=== PATIENT | male | born 1975 | race Caucasian/White ===

== ENCOUNTER 2019-03-10 20:45 | Emergency (ER) | payer OTHER ==
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
[2019-03-10 21:08] VITALS: BP 148/97; PULSE 82; TEMP 98.1; BMI 32.8
== END 2019-03-10 21:11 | disposition home or self-care (01) ==
LOC: JER 20:45
DX: R03.0 Elevated blood-pressure reading, without diagnosis of hypertension (principal); Z91.013 Allergy to seafood
CPT/HCPCS: 99281-25

== ENCOUNTER 2020-12-21 04:58 | Emergency (ER) | payer OTHER ==
[2020-12-21] MEDS ORDERED: diazePAM 5 MG TABLET PO ONE (05:23)
[2020-12-21] MEDS ORDERED: LACTATED RINGERS SOLUTION 1000 ML INFUS.BAG IV ONE (05:23)
[2020-12-21] MEDS ORDERED: DEXAMETHASONE SOD PHOSPHATE 10 MG/1 ML VIAL IVPUSH ONE (05:23)
[2020-12-21] MEDS ORDERED: diazePAM 5 MG TABLET ONE (05:27)
[2020-12-21] MEDS ORDERED: DEXAMETHASONE SOD PHOSPHATE 10 MG/1 ML VIAL ONE (05:27)
[2020-12-21] MEDS ORDERED: ACETAMINOPHEN 1000 MG/100 ML VIAL (NON FORMULARY) IVPB ONE (05:28)
[2020-12-21] MEDS ORDERED: LIDOCAINE 5% TOPICAL PATCH TP ONE (05:29)
[2020-12-21 05:30] VITALS: BMI 29.9
[2020-12-21] MEDS ORDERED: ONDANSETRON 4 MG/2 ML VIAL IVPUSH ONE (05:35)
[2020-12-21] MEDS ORDERED: ACETAMINOPHEN INJECTION 100 ML IVPB ONE (05:37)
[2020-12-21] MEDS ORDERED: ONDANSETRON 4 MG/2 ML VIAL ONE (05:37)
[2020-12-21] MEDS ORDERED: LIDOCAINE 5% TOPICAL PATCH ONE (05:37)
[2020-12-21 05:53] LABS: BASO % 1.2 % (0-2.0); EOS % 0.2 % (0-4.5); HEMATOCRIT 45.6 % (35.4-49); HEMOGLOBIN 15.8 GM/dL (11.7-16.9); LYMPH % 14.1 % (8-40); MCH 32.6 pg (25.7-33.7); MCHC 34.7 g/dl (32.0-35.9); MEAN CELL VOLUME 93.9 fl (80-96); MEAN PLT VOLUME 9.1 fl (7.5-11.1); MONO % 5.6 % (3.8-10.2); NEUT % 78.9 % (42.8-82.8); PLATELET COUNT 215 10^3/uL (134-434); RBC 4.86 M/mm3 (4.00-5.60); RDW 13.6 % (11.9-15.9); WHITE BLOOD COUNT 11.4 K/mm3 (4.0-10.0)
[2020-12-21 06:12] LABS: CALCIUM 9.2 mg/dL (8.5-10.1)
[2020-12-21 06:13] LABS: ALBUMIN 4.3 g/dl (3.4-5.0); BLOOD UREA NITROGEN 15.6 mg/dL (7-18)
[2020-12-21 06:16] LABS: CREATININE 1.2 mg/dL (0.55-1.3)
[2020-12-21 06:17] LABS: BILIRUBIN,TOTAL 0.2 mg/dL (0.2-1)
[2020-12-21 06:26] VITALS: BP 130/93; PULSE 70; TEMP 98.3
[2020-12-21 08:08] LABS: PH,URINE 5.5 (5.0-8.0); URINE APPEARANCE CLEAR; URINE BILIRUBIN NEGATIVE (NEGATIVE); URINE COLOR YELLOW; URINE GLUCOSE (UA) NEGATIVE (NEGATIVE); URINE KETONE NEGATIVE (NEGATIVE); URINE LEUK ESTERASE NEGATIVE (NEGATIVE); URINE NITRITE NEGATIVE (NEGATIVE); URINE PROTEIN NEGATIVE (NEGATIVE); URINE UROBILINOGEN 0.2 mg/dL (0.2-1.0)
[2020-12-21 10:23] LABS: EPI CELLS 7 /uL (0-25.1); HYALINE CASTS 8 /uL (0-3.1); URINE BACTERIA 4 /uL (0-1359); URINE RBC 6 /uL (0-23.9); URINE WBC 7 /uL (0-25.8)
[2020-12-21] MEDS ORDERED: LIDOCAINE PATCH REMOVAL MC SCH (22:00)
== END 2020-12-21 09:47 | disposition home or self-care (01) ==
LOC: JER 04:58
PROC: 3E0333Z Introduction of Anti-inflammatory into Peripheral Vein, Percutaneous Approach (ICD-10-PCS; principal; 2020-12-21)
PROC: 3E033GC Introduction of Other Therapeutic Substance into Peripheral Vein, Percutaneous Approach (ICD-10-PCS; 2020-12-21)
PROC: 3E033GC Introduction of Other Therapeutic Substance into Peripheral Vein, Percutaneous Approach (ICD-10-PCS; 2020-12-21)
DX: M54.5 Low back pain (principal)
CPT/HCPCS: 36415; 71275-TC; 72128-TC; 72131-TC; 74174-TC; 80053; 81003; 82550; 82553; 84484; 85025; 93005; 93010; 99285-25; J0131; J1100

== ENCOUNTER 2022-10-04 23:26 | Emergency (ER) | payer OTHER ==
[2022-10-04 23:35] VITALS: BP 143/96; PULSE 81; RESP 20; TEMP 97.6; BMI 29.2
[2022-10-05] MEDS ORDERED: LIDOCAINE 5% TOPICAL PATCH TP ONE (00:27)
[2022-10-05] MEDS ORDERED: ACETAMINOPHEN 500 MG TABLET (FP) PO ONE (00:27)
[2022-10-05] MEDS ORDERED: KETOROLAC TROMETHAMINE 30 MG/1 ML VIAL IM ONE (00:31)
[2022-10-05] MEDS ORDERED: LIDOCAINE 5% TOPICAL PATCH ONE (00:41)
[2022-10-05] MEDS ORDERED: ACETAMINOPHEN 500 MG TABLET (FP) ONE (00:41)
[2022-10-05] MEDS ORDERED: KETOROLAC TROMETHAMINE 30 MG/1 ML VIAL ONE (00:41)
== END 2022-10-05 02:17 | disposition home or self-care (01) ==
LOC: JER 23:26
PROC: 3E0233Z Introduction of Anti-inflammatory into Muscle, Percutaneous Approach (ICD-10-PCS; principal; 2022-10-04)
DX: M54.42 Lumbago with sciatica, left side (principal)
CPT/HCPCS: 99284-25

== ENCOUNTER 2023-10-22 12:25 | Emergency (ER) | payer OTHER ==
[2023-10-22 12:32] VITALS: BP 133/82; PULSE 71; RESP 20; TEMP 97.5; BMI 29.9
[2023-10-22] MEDS ORDERED: LIDOCAINE 4% PATCH TP ONE (13:36)
[2023-10-22] MEDS ORDERED: KETOROLAC TROMETHAMINE 30 MG/1 ML VIAL ONE (13:37)
[2023-10-22] MEDS ORDERED: ACETAMINOPHEN 500 MG TABLET (FP) ONE (13:37)
[2023-10-22] MEDS: LIDOCAINE 4% PATCH TP ONE (13:46)
[2023-10-22] MEDS: KETOROLAC TROMETHAMINE 30 MG/1 ML VIAL IM ONE (13:46)
[2023-10-22] MEDS: ACETAMINOPHEN 500 MG TABLET (FP) PO ONE (13:47)
[2023-10-22] MEDS ORDERED: METHOCARBAMOL 500 MG TABLET ONE (13:49)
[2023-10-22] MEDS: METHOCARBAMOL 500 MG TABLET PO ONE (13:52)
[2023-10-22] MEDS ORDERED: LIDOCAINE PATCH REMOVAL MC SCH (22:00)
== END 2023-10-22 15:07 | disposition home or self-care (01) ==
LOC: JERFT 12:25
PROC: 3E0133Z Introduction of Anti-inflammatory into Subcutaneous Tissue, Percutaneous Approach (ICD-10-PCS; principal; 2023-10-22)
DX: M54.50 Low back pain, unspecified (principal); Y99.0 Civilian activity done for income or pay
CPT/HCPCS: 99284-25

== ENCOUNTER 2023-10-23 12:25 | Emergency (ER) | payer OTHER ==
[2023-10-23 12:40] VITALS: BP 142/92; PULSE 66; RESP 20; TEMP 97.9; BMI 29.9
[2023-10-23] MEDS ORDERED: morphine SULFATE 4 MG/ML VIAL ONE (13:20)
[2023-10-23] MEDS ORDERED: ONDANSETRON 4 MG/2 ML VIAL ONE (13:20)
[2023-10-23] MEDS ORDERED: KETOROLAC TROMETHAMINE 30 MG/1 ML VIAL ONE (13:20)
[2023-10-23] MEDS ORDERED: ACETAMINOPHEN INJECTION 100 ML IVPB ONE (13:20)
[2023-10-23] MEDS: ACETAMINOPHEN 1000 MG/100 ML BAG IVPB ONE (13:33)
[2023-10-23] MEDS: morphine CARPU-JECT 4 MG/1 ML DISP.SYRIN IVPUSH ONE (13:33)
[2023-10-23] MEDS: KETOROLAC TROMETHAMINE 30 MG/1 ML VIAL IVPUSH ONE (13:33)
[2023-10-23] MEDS: ONDANSETRON 4 MG/2 ML VIAL IVPUSH ONE (13:34)
== END 2023-10-23 15:41 | disposition home or self-care (01) ==
LOC: JERFT 12:25
PROC: 3E033NZ Introduction of Analgesics, Hypnotics, Sedatives into Peripheral Vein, Percutaneous Approach (ICD-10-PCS; principal; 2023-10-23)
PROC: 3E0333Z Introduction of Anti-inflammatory into Peripheral Vein, Percutaneous Approach (ICD-10-PCS; 2023-10-23)
PROC: 3E033NZ Introduction of Analgesics, Hypnotics, Sedatives into Peripheral Vein, Percutaneous Approach (ICD-10-PCS; 2023-10-23)
PROC: 3E033GC Introduction of Other Therapeutic Substance into Peripheral Vein, Percutaneous Approach (ICD-10-PCS; 2023-10-23)
DX: M54.41 Lumbago with sciatica, right side (principal)
CPT/HCPCS: 72131-TC; 99284-25; J0131

== ENCOUNTER 2024-06-25 16:55 | Emergency (ER) | payer OTHER ==
[2024-06-25 17:04] VITALS: BP 152/90; PULSE 79; RESP 20; TEMP 98.8; BMI 29.9
== END 2024-06-25 19:45 | disposition home or self-care (01) ==
LOC: JER 16:55
DX: L84 Corns and callosities (principal); M79.89 Other specified soft tissue disorders; M79.661 Pain in right lower leg
CPT/HCPCS: 73610-TC-RT-FY; 73630-TC-RT-FY; 99284-25